=== PATIENT | male | born 1975 | race Caucasian/White ===

== ENCOUNTER 2016-10-14 05:37 | Emergency (ER) | payer BC ==
[~2016-10-14] VITALS: Ht 185.4 cm; Wt 117.9 kg
[~2016-10-14 05:37] MED LIST: ALLEGRA D 12 HO1 TER PO; AMOXICILLIN500 MG PO; AMOXIL500 MG PO; ANTIVERT/2525 MG PO; ANTIVERT12.5 MG PO; FLONASE0.05 MG/AC NS; ULTRAM50 MG PO
[2016-10-14 06:34] LABS: BASO # 0.1 10*3/uL (0.0-0.1); BASO % 0.9 % (0.0-1.0); EOS # 0.1 10*3/uL (0.0-0.4); EOS % 1.7 % (1.0-4.0); HEMOGLOBIN 14.6 g/dl (14.0-18.0); LYMPH # 1.9 10*3/uL (1.3-4.4); LYMPH % 28.9 % (27.0-41.0); MEAN CELL VOLUME 83.8 fl (80.0-94.0); MEAN CORPUSCULAR HGB 29.1 pg (27.0-31.0); MEAN CORPUSCULAR HGB CONC 34.8 g/dl (33.0-37.0); MEAN PLATELET VOLUME 9.7 fl (9.6-12.3); MONO # 0.6 10*3/uL (0.1-1.0); MONO % 9.9 % (3.0-9.0); NEUT # 3.8 10*3/uL (2.3-7.9); NEUT % 58.4 % (47.0-73.0); PLATELET COUNT AUTOMATED 281 10*3/uL (130-400); RED BLOOD COUNT 5.01 10*6/uL (4.50-5.90); RED CELL DISTRI WIDTH 12.5 % (0-14.5); WHITE BLOOD COUNT 6.5 10*3/uL (4.8-10.8)
[2016-10-14 06:44] LABS: BUN 12 mg/dl (7-24); CARBON DIOXIDE 25 mmol/L (21-32); CHLORIDE 105 mmol/L (98-107); EST GLOM FILT AFRICAN AMERICAN > 60 ml/min; GLUCOSE 111 mg/dL (65-99); POTASSIUM 3.9 mmol/L (3.5-5.1); SODIUM 142 mmol/L (136-145)
[2016-10-14 06:59] LABS: BILIRUBIN NEGATIVE (NEGATIVE); BLOOD TRACE-INTACT (NEGATIVE); CLARITY CLEAR (CLEAR); COLOR YELLOW (YELLOW); GLUCOSE NEGATIVE (NEGATIVE); KETONE NEGATIVE (NEGATIVE); LEUKO ESTERASE NEGATIVE (NEGATIVE); NITRITE NEGATIVE (NEGATIVE); PROTEIN NEGATIVE (NEGATIVE); SPECIFIC GRAVITY 1.015 (1.005-1.030); UROBILINOGEN 0.2 E.U./dl (0.2-1.0)
[2016-10-14 07:05] LABS: URINE REFLEX COMMENT NO (NO)
== END 2016-10-14 09:07 | disposition home or self-care (01) ==
LOC: ED 05:37
PROVIDERS: Emergency Medicine
DX: R10.31 Right lower quadrant pain (principal); R31.9 Hematuria, unspecified

== ENCOUNTER 2019-04-23 21:39 | Inpatient (IN) | payer OTHER ==
[~2019-04-23] VITALS: Ht 185.4 cm; Wt 112.7 kg
--- NOTE | ~2019-04-23 | PR ---
[place], [place] PROGRESS NOTE [id number] UNIT #: [id number] ROOM: 404 DOCTOR: ISHAN FAJARDO MD BIRTHDATE: [birth year] DOS: 04/25/2019 SUBJECTIVE: The patient back in normal sinus rhythm. He had a MINGO and a cardiac stress test performed this morning. OBJECTIVE: GENERAL APPEARANCE: The patient is alert and oriented x 3, in no visible distress. VITAL SIGNS: Blood pressure 118/70, heart rate of 58 beats per minute, breathing 20 times per minute, temperature 98 degrees Fahrenheit. HEENT AND NECK: Exam within normal limits. CARDIOVASCULAR SYSTEM: Heart rate is regular in rate and rhythm. S1 and S2 normally audible. LUNGS: Clear to auscultation. ABDOMEN: Soft, nontender. No obvious organomegaly. Bowel sounds are present. EXTREMITIES: Without significant cyanosis or edema. IMPRESSION: 1. The patient with acute atrial fibrillation with rapid ventricular response, resolved, converted back to normal sinus rhythm. The patient on Cardizem CD, heart rate is controlled and the patient anticoagulated with Xarelto now. 2. Obesity, BMI of 32.7. The patient is working with Dietary. 3. History of vertigo, presently asymptomatic. 4. Type 2 diabetes mellitus, diet controlled. ISHAN FAJARDO MD CM:PNTRANS [id number] ISHAN FAJARDO MD 04/26/19 0537 interface
--- NOTE | ~2019-04-23 | DS ---
[place], [place] DISCHARGE SUMMARY NAME: ARTURO YOUNGBLOOD [facility] #: [id number] UNIT #: [id number] ROOM: 404 DOCTOR: TOMI AGUILERA MD BIRTHDATE: [birth year] DOS: 04/26/2019 DIAGNOSES: 1. Atrial fibrillation, paroxysmal. 2. Diet controlled diabetes mellitus. 3. History of vertigo. HOSPITAL COURSE: The patient is a 44-year-old who comes in with complaints of shortness of breath. He was found to be in atrial fibrillation with rapid ventricular response. In the ER, was given IV Cardizem and converted to sinus rhythm, was admitted. After admission, he remained in sinus rhythm. Cardiology consultation was obtained. Echocardiogram and stress tests were done. He was anticoagulated with Xarelto. The patient remained without any complaints on 04/26/2019, after his stress test came back as negative. Echocardiogram was normal, was discharged home to be followed up as an outpatient. DISCHARGE MEDICATIONS: Included Xarelto 20 mg daily and diltiazem 120 mg daily. TOMI AGUILERA MD CM:BRADY [id number] TOMI AGUILERA MD 05/11/19 0908 interface
--- NOTE | ~2019-04-23 | EKG ---
[place], [place] ELECTROCARDIOGRAM REPORT NAME: ARTURO YOUNGBLOOD UNIT #: [id number] ROOM: 404 DOCTOR: AJAY DRAFT REPORT BIRTHDATE: [birth year] [facility] Test Date: 2019-04-24 Test Time: 03:00:05 Pat Name: ARTURO YOUNGBLOOD Department: Room: 404 Gender: M Clinical Immunologist: Chandni Palomo : 1975 Requested By: MIO DUDLEY Order Number: [id number] Reading MD: Rd Daniels MD Measurements Intervals [place] Rate: 85 P: RI: QRS: 7 QRSD: 105 T: 11 QT: 365 QTc: 434 Interpretive Statements Atrial fibrillation Electronically Signed On 04-25-2019 15:39:[address] Daniels MD CM:EKGRPT:ELECTROCARDIOGRAM REPORT [id number] MIO BALL DRAFT REPORT MIO DUDLEY DO
--- NOTE | ~2019-04-23 | PR ---
[place], [place] PROGRESS NOTE NAME[id number] UNIT #: [id number] ROOM: 404 DOCTOR: TOMI AGUILERA MD BIRTHDATE: [birth year] DOS: 04/26/2019 SUBJECTIVE: The patient is doing well without any complaints. OBJECTIVE: GENERAL: He is awake and alert and oriented. VITAL SIGNS: Blood pressure is 108/75, pulse of 80, respirations 18, temperature 97.9. LUNGS: Clear. HEART: Regular. ABDOMEN: Soft. EXTREMITIES: Without any edema. ASSESSMENT AND PLAN: Paroxysmal atrial fibrillation, converted to sinus rhythm. The patient is stable. The patient remains in sinus rhythm. The plan is to discharge to home today. He already had a stress test and echocardiogram, which were all within normal limits and the Cardiology has cleared for discharge. Unfortunately, it is a weekend and he is unable to get his Xarelto here. I have given him two tablets of Xarelto, one for today and one for tomorrow and he will hopefully be able to come back on Sunday and have his prescription refill just in case the copay is too expensive as an outpatient. Discussed with nursing staff in detail. TOMI AGUILERA MD CM:PNTRANS 1324 TOMI AGUILERA MD 04/26/19 1323 interface
--- NOTE | ~2019-04-23 | EKG ---
[place], [place] ELECTROCARDIOGRAM REPORT NAME: ARTURO YOUNGBLOOD UNIT #: [id number] ROOM: 404 DOCTOR: JAAY DRAFT REPORT BIRTHDATE: [birth year] [facility] Test Date: 2019-04-24 Test Time: 00:30:45 Pat Name: ARTURO YOUNGBLOOD Department: Room: 404 Gender: M Concrete Conveyor Operator: Chandni Palomo : 1975 Requested By: MIO DUDLEY Order Number: [id number] Reading MD: Rd Daniels MD Measurements Intervals [place] Rate: 129 P: AL: QRS: 9 QRSD: 91 T: 27 QT: 308 QTc: 452 Interpretive Statements Atrial fibrillation Rapid ventricular rate. Baseline wander in lead(s) V1 Electronically Signed On 04-25-2019 15:38:[address] Daniels MD CM:EKGRPT:ELECTROCARDIOGRAM REPORT 0030 1538 MIO BALL DRAFT REPORT MIO DUDLEY DO
--- NOTE | ~2019-04-23 | EKG ---
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
--- NOTE | ~2019-04-23 | WRIGHTHP ---
[place], [place] PATIENT HISTORY AND PHYSICAL EXAM NAME: ARTURO YOUNGBLOOD [facility] #: [id number] UNIT #: [id number] ROOM: 404 DOCTOR: ISHAN FAJARDO MD BIRTHDATE: [birth year] DOS: 04/23/2019 HISTORY OF PRESENT ILLNESS: 1. The patient is a 44-year-old gentleman with a past medical history of diet-controlled type 2 diabetes mellitus. 2. Obesity with BMI of 32.7, POLLEN allergies. 3. History of vertigo. The patient presented to the Emergency Department with palpitation, increased shortness of breath. No fainting episodes and he was found to be in atrial fibrillation with rapid ventricular response with a heart rate of 130 beats per minute. The patient was hydrated with normal saline, started on IV Cardizem and had became available and admitted to a monitored bed for further management. After admission, the patient is chest pain free. His breathing has improved. No other GI or urinary symptoms. REVIEW OF SYSTEMS: RESPIRATORY: The patient did have increasing shortness of breath. GASTROINTESTINAL: No nausea, vomiting, diarrhea, constipation. CARDIOVASCULAR: History of palpitations. FAMILY HISTORY: Noncontributory. HOME MEDICATIONS: None. PHYSICAL EXAMINATION: GENERAL: Alert, oriented x 3. VITAL SIGNS: Blood pressure 101/56, heart rate 70 beats per minute, breathing 18 times per minute, temperature 98.8 degrees Fahrenheit. HEENT AND NECK: Extraocular movements are intact. Sclerae are anicteric. Oral mucosa is moist and clean. No obvious facial weakness. Neck is supple without any lymphadenopathy. No thyromegaly. No JVD. No carotid arterial bruits. LUNGS: Clear to auscultation. No wheezing. No rhonchi. CARDIOVASCULAR SYSTEM: The patient had irregularly irregular heart rate on auscultation. S1, S2 audible. No murmurs. ABDOMEN: Soft, nontender. No obvious organomegaly. Bowel sounds are present. No obvious herniation. EXTREMITIES: Without significant cyanosis or edema. Warm to touch. CENTRAL NERVOUS SYSTEM: Alert and oriented x 3. Cranial nerves II-XII are intact. Speech is normal. The patient is able to move all extremities. Normal muscle strength. Deep tendon reflexes are equal on both sides. Plantars were downgoing. LABORATORY DATA: Normal serum electrolytes. BMI of 32.7, heart rate ranging between 70-130 beats per minute. Normal serum electrolytes, normal CBC. IMPRESSION: 1. New onset atrial fibrillation with rapid ventricular response, being controlled with IV Cardizem. The patient is being worked up for cardioversion with MINGO. Case discussed with Dr. Daniels and the patient in great detail today. [place], [place] PATIENT HISTORY AND PHYSICAL EXAM NAME: ARTURO YOUNGBLOOD UNIT #: [id number] ROOM: 404 DOCTOR: SCOTTY BARRERA,ISHAN Kebede BIRTHDATE: [birth year] The patient to be anticoagulated with Xarelto. 2. Type 2 diabetes mellitus, diet controlled with significant weight loss. 3. Obesity with BMI of 32.8. The patient working on diet and to work with dietary. ISHAN FAJARDO MD CM:HISPHYS:PATIENT HISTORY AND PHYSICAL EXAMINATION [id number] ISHAN FAJARDO MD 04/24/19 1026 interface
[2019-04-23 21:55] VITALS: BP 131/71
[2019-04-23 21:57] LABS: BASO # 0.1 10*3/uL (0.0-0.1); EOS # 0.3 10*3/uL (0.0-0.4); HEMATOCRIT 44.4 % (42.0-52.0); HEMOGLOBIN 15.2 g/dl (14.0-18.0); LYMPH # 2.1 10*3/uL (1.3-4.4); LYMPH % 18.1 % (27.0-41.0); MEAN CELL VOLUME 89.3 fl (80.0-94.0); MEAN CORPUSCULAR HGB 30.6 pg (27.0-31.0); MEAN CORPUSCULAR HGB CONC 34.2 g/dl (33.0-37.0); MEAN PLATELET VOLUME 10.4 fl (9.6-12.3); MONO # 1.4 10*3/uL (0.1-1.0); MONO % 12.2 % (3.0-9.0); NEUT # 7.5 10*3/uL (2.3-7.9); NEUT % 65.5 % (47.0-73.0); PLATELET COUNT AUTOMATED 261 10*3/uL (130-400); RED BLOOD COUNT 4.97 10*6/uL (4.50-5.90); RED CELL DISTRI WIDTH 12.5 % (0-14.5); WHITE BLOOD COUNT 11.4 10*3/uL (4.8-10.8)
[2019-04-23 22:30] VITALS: BP 120/82
[2019-04-23 22:47] LABS: ACT PARTIAL THROMBO TIME 30.8 SECONDS (20.0-32.1); INTERNATIONAL NORM RATIO 0.9 (2.0-3.5)
[2019-04-23 22:52] LABS: ALBUMIN 3.8 gm/dl (3.1-4.5); BUN 14 mg/dl (7-24); CHLORIDE 112 mmol/L (98-107); CREATININE 0.88 mg/dL (0.70-1.30); POTASSIUM 3.6 mmol/L (3.5-5.1); SGOT/AST 18 IU/L (3-35); SGPT/ALT 27 U/L (12-78); SODIUM 141 mmol/L (136-145); TOTAL PROTEIN 7.4 gm/dL (6.4-8.2)
[2019-04-23 22:54] LABS: ALKALINE PHOSPHATASE 107 U/L (45-117); TROPONIN I 0.035 ng/ml (<0.045)
[2019-04-23 23:00] VITALS: BP 90/60
--- NOTE | 2019-04-23 23:00 | NUR ---
I SPOKE WITH HEENA LUIS AND ASKED IF THE PATIENT IS GOING TO BE STARTED ON A BLOOD THINNER WHILE IN THE ER. SHE STATES THAT WE WILL NOT START A BLOOD THINNER BUT THAT HE WILL BE STARTED ON ONE BY CARDIOLOGY.
--- NOTE | 2019-04-23 23:00 | NUR ---
BEOFRE STARTING THE PATIENT ON CARDIZEM GTT THE PATIENT BP DROPPED TO 90/60 MAN. TOBY NAIK WAS NOTIFIED. CARDIZEM ON HOLD AT THIS TIME. BOLUS NS RUNNING. PATIENT TO BE ADMITTED.
[2019-04-23 23:30] VITALS: BP 107/68
[2019-04-24] VITALS (8 sets, daily range): BP systolic 101–136; BP diastolic 56–86
--- NOTE | 2019-04-24 00:30 | NUR ---
PER HEENA LUIS. THE PATIENTS CARDIZEM GTT IS TO BE ON HOLD UNTIL CARDIOLOGY GIVES THE ORDER TO CONT IT. HEENA LYNCH WAS NOTIFIED IN REPORT WHEN PATIENT WAS ADMITTED.
--- NOTE | 2019-04-24 00:30 | NUR ---
A 44, admitted to , under the services of Dr. SCOTTY BARRERA,ISHAN Kebede with a diagnosis of NEW ONSET AFIB. Chief complaint is SHORTNESS OF BREATH. Patient arrived via stretcher from ER. Monitor applied. Initial assessment completed. Vital signs taken and recorded. DR. SCOTTY BARRERA,ISHAN Kebede notified of admission to the unit. Orders received. See assessment for past medical history, medications and allergies. Patient and/or family oriented to unit. [facility] visitation policy reviewed. Clothing/patient valuable form completed. HEENA ALEXANDER
--- NOTE | 2019-04-24 00:50 | NUR ---
DR FAJARDO CALLED WITH ADMISSION ORDERS. NEW ORDERS RECEIVED, SEE EMAR.
--- NOTE | 2019-04-24 00:54 | NUR ---
CALL PLACED TO [facility] CARDIOOLOGY CONCERNING STARTING CARDIZEM. WAITING FOR CALL BACK.
--- NOTE | 2019-04-24 00:57 | NUR ---
DR QUISPE RETURNED CALL, OK TO START CARDIZEM DRIP AT THIS TIME.
--- NOTE | 2019-04-24 01:48 | NUR ---
CARDIZEM DRIP INCREASED TO 10MG/HR. BP 120/72 HR 120. WILL MONITOR.
--- NOTE | 2019-04-24 03:00 | NUR ---
HR REMAINS 113, CARDIZEM CONTINUES AT 10MG/HR.
--- NOTE | 2019-04-24 04:38 | NUR ---
PATIENT AWAKE AND WATCHING TV AT THIS TIME. RESPIRATIONS EASY AND UNLABORED. PATIENT STATES THAT HE DOES NOT FEEL THE FLUTTERING FEELING IN HIS CHEST AT THIS TIME. HR 80'S-100'S AT THIS TIME. PATIENT HAS NO COMPLAINTS AT THIS TIME. CALL LIGHT WITHIN REACH. WILL MONITOR.
--- NOTE | 2019-04-24 06:00 | NUR ---
PT HR MAINTAINING 70'S-80'S ON CM. CARDIZEM DRIP DECREASED TO 5 MG/HR. WILL CONTINUE TO MONITOR.
--- NOTE | 2019-04-24 08:30 | NUR ---
Branch Associate in to talk to patient. Patient states lives at home with his . There are 5 steps in the home. Physician: Dr. Rex Newsome Pharmacy: [facility] Home health services: none Patient's level of ADLs: INDEPENDENT Patient has working utilities: yes DME: none Follow-up physician's appointment after d/c: he prefers to make his own follow up appt after discharge Does patient want to access PORTAL?: no Discharge plan discussed with patient and his who is present at his bedside. He lives at home with his . He is independent in his ADLs and ambulation. Discussed home health care services and he denies any home needs at this time. When medically stable he will be discharged to home. His will provide transportation on discharge. LUCAS KRAFT
[2019-04-25] VITALS: BP 112/69
--- NOTE | 2019-04-25 00:30 | NUR ---
PATIENT HR 55-59 ON SUMO WRESTLER. CARDIZEM PO HELD AT THIS TIME. WILL MONITOR HEART RATE.
--- NOTE | 2019-04-25 04:00 | NUR ---
24 HR chart check completed.
[2019-04-25 07:03] LABS: BASO # 0.1 10*3/uL (0.0-0.1); BASO % 0.8 % (0.0-1.0); EOS # 0.3 10*3/uL (0.0-0.4); EOS % 3.8 % (1.0-4.0); HEMATOCRIT 42.3 % (42.0-52.0); HEMOGLOBIN 13.8 g/dl (14.0-18.0); LYMPH # 1.7 10*3/uL (1.3-4.4); LYMPH % 24.3 % (27.0-41.0); MEAN CELL VOLUME 91.4 fl (80.0-94.0); MEAN CORPUSCULAR HGB 29.8 pg (27.0-31.0); MEAN CORPUSCULAR HGB CONC 32.6 g/dl (33.0-37.0); MEAN PLATELET VOLUME 10.5 fl (9.6-12.3); MONO # 0.8 10*3/uL (0.1-1.0); MONO % 10.6 % (3.0-9.0); NEUT # 4.3 10*3/uL (2.3-7.9); NEUT % 60.2 % (47.0-73.0); PLATELET COUNT AUTOMATED 246 10*3/uL (130-400); RED BLOOD COUNT 4.63 10*6/uL (4.50-5.90); RED CELL DISTRI WIDTH 12.9 % (0-14.5); WHITE BLOOD COUNT 7.1 10*3/uL (4.8-10.8)
[2019-04-25 07:29] LABS: BUN 9 mg/dl (7-24); CHLORIDE 106 mmol/L (98-107); CREATININE 0.82 mg/dL (0.70-1.30); POTASSIUM 3.8 mmol/L (3.5-5.1); SODIUM 139 mmol/L (136-145)
[2019-04-25 07:42] LABS: FREE T4 0.87 ng/dl (0.76-1.46); THYROID STIM HORMONE (HS) 1.93 uIU/ml (0.358-4.75)
[2019-04-25 08:00] VITALS: BP 118/70
--- NOTE | 2019-04-25 08:30 | NUR ---
Steel Heater in to see patient. No new needs or request at this time. He denies any home needs. When medically stable he will be discharged to home. He is to have a stress test and echo today.
--- NOTE | 2019-04-25 08:55 | NUR ---
PT OFF FLOOR FOR STRESS TEST AT THIS TIME.
--- NOTE | 2019-04-25 09:50 | NUR ---
INFORMED CONSENT OBTAINED FOR LEXISCAN NUCLEAR STRESS TEST WITH DR. QUISPE. RESTING EKG NSR WITH A RESTING HR OF 66 WITH BP OF 120/72. LUNGS CLEAR. PT COMPLETED A 1:00 LEXISCAN PROTOCOL RECEIVING LEXISCAN 0.4 MG IV OVER 10 SECONDS. HAD NO CHEST PAIN OR ANY EKG CHANGES. DID C/O FEELINGS OF "HOT, DIZZINESS AND SHORT OF BREATH" THAT WAS RELIEVED IN RECOVERY. HAD A PEAK HR OF 104 WITH BP OF 102/64. LAST RECOVERY HR OF 86 WITH BP OF 124/72. AWAITING SCANNING IN STABLE CONDITION.
--- NOTE | 2019-04-25 11:40 | NUR ---
PT RETURNED FROM STRESS TEST AT THIS TIME.
[2019-04-25 12:00] VITALS: BP 117/67
[2019-04-25 16:00] VITALS: BP 103/61
--- NOTE | 2019-04-25 16:11 | NUR ---
RECEIVED CALL FROM DR QUISPE, STATES PT'S ECHO AND STRESS TEST WERE NORMAL, PT MAY FOLLOW UP IN A MONTH. UPDATED DR FAJARDO. STATES PT MAY BE A POSSIBLE D/C TOMORROW.
[2019-04-25 20:00] VITALS: BP 108/63
[2019-04-26] VITALS: BP 108/75
[2019-04-26] MEDS ORDERED: CARDIZEM CD120 M2 PO (07:59)
[2019-04-26] MEDS ORDERED: XARE20MG PO (07:59)
[2019-04-26 08:17] LABS: BASO # 0.1 10*3/uL (0.0-0.1); BASO % 0.7 % (0.0-1.0); EOS # 0.2 10*3/uL (0.0-0.4); EOS % 3.4 % (1.0-4.0); HEMATOCRIT 44.6 % (42.0-52.0); HEMOGLOBIN 14.7 g/dl (14.0-18.0); MEAN CELL VOLUME 89.6 fl (80.0-94.0); MEAN CORPUSCULAR HGB 29.5 pg (27.0-31.0); MEAN PLATELET VOLUME 10.5 fl (9.6-12.3); MONO # 0.7 10*3/uL (0.1-1.0); NEUT # 3.7 10*3/uL (2.3-7.9); NEUT % 55.6 % (47.0-73.0); PLATELET COUNT AUTOMATED 282 10*3/uL (130-400); RED BLOOD COUNT 4.98 10*6/uL (4.50-5.90); RED CELL DISTRI WIDTH 12.3 % (0-14.5); WHITE BLOOD COUNT 6.7 10*3/uL (4.8-10.8)
[2019-04-26 08:35] LABS: BUN 10 mg/dl (7-24); CHLORIDE 107 mmol/L (98-107); CREATININE 0.89 mg/dL (0.70-1.30); POTASSIUM 3.5 mmol/L (3.5-5.1); SODIUM 140 mmol/L (136-145)
--- NOTE | 2019-04-26 09:30 | NUR ---
Discharge instructions reviewed with patient/family. Patient receptive and verbalizes understanding. Follow-up care arranged. Written instructions given to patient/family. IV site and junior staff accountant removed. CODIE AMOR
== END 2019-04-26 09:30 | disposition home or self-care (01) | DRG 310 ==
LOC: ED 21:39 → 4E 23:30 → EDHOLD 23:30 → 4E 23:41
PROVIDERS: Emergency Medicine; ADMIT Internal Medicine
PROC: 3E073KZ Introduction of Other Diagnostic Substance into Coronary Artery, Percutaneous Approach (ICD-10-PCS; principal; 2019-04-25)
PROC: 4A02XM4 Measurement of Cardiac Total Activity, External Approach (ICD-10-PCS; principal; 2019-04-25)
DX: I48.0 Paroxysmal atrial fibrillation (principal); Z82.49 Family history of ischemic heart disease and other diseases of the circulatory system; E11.9 Type 2 diabetes mellitus without complications; E66.9 Obesity, unspecified; Z68.32 Body mass index [BMI] 32.0-32.9, adult

== ENCOUNTER 2020-06-07 09:59 | Emergency (ER) | payer OTHER ==
[~2020-06-07] VITALS: Ht 187.9 cm; Wt 117.9 kg
[~2020-06-07 09:59] MED LIST changes: +CARDIZEM CD120 M2 PO; +XARE20MG PO
[2020-06-07 10:29] LABS: BASO # 0.1 10*3/uL (0.0-0.1); BASO % 1.1 % (0.0-1.0); EOS # 0.1 10*3/uL (0.0-0.4); EOS % 1.1 % (1.0-4.0); HEMATOCRIT 47.7 % (42.0-52.0); LYMPH # 2.5 10*3/uL (1.3-4.4); LYMPH % 34.3 % (27.0-41.0); MEAN CELL VOLUME 86.3 fl (80.0-94.0); MEAN CORPUSCULAR HGB 28.8 pg (27.0-31.0); MEAN CORPUSCULAR HGB CONC 33.3 g/dl (33.0-37.0); MEAN PLATELET VOLUME 9.7 fl (9.6-12.3); MONO # 0.6 10*3/uL (0.1-1.0); MONO % 8.4 % (3.0-9.0); NEUT % 54.8 % (47.0-73.0); PLATELET COUNT AUTOMATED 319 10*3/uL (130-400); RED BLOOD COUNT 5.53 10*6/uL (4.50-5.90); RED CELL DISTRI WIDTH 12.2 % (0-14.5); WHITE BLOOD COUNT 7.2 10*3/uL (4.8-10.8)
[2020-06-07 10:42] LABS: ACT PARTIAL THROMBO TIME 42.7 SECONDS (20.0-32.1); INTERNATIONAL NORM RATIO 1.2 (2.0-3.5)
[2020-06-07 10:50] LABS: ALBUMIN 3.9 gm/dl (3.1-4.5); ALKALINE PHOSPHATASE 96 U/L (45-117); BUN 14 mg/dl (7-24); CHLORIDE 109 mmol/L (98-107); CREATININE 1.23 mg/dL (0.70-1.30); LIPASE 129 U/L (73-393); POTASSIUM 4.4 mmol/L (3.5-5.1); SGOT/AST 17 IU/L (3-35); SGPT/ALT 30 U/L (12-78); SODIUM 137 mmol/L (136-145); TOTAL PROTEIN 7.6 gm/dL (6.4-8.2)
[2020-06-07 10:53] LABS: TROPONIN I < 0.015 ng/ml (<0.045)
[2020-06-07] MEDS ORDERED: BUPROPION HCL150 M1 PO (19:46)
[2020-06-07] MEDS ORDERED: TRAZODONE50 MG PO (19:46)
== END 2020-06-07 12:17 | disposition left against medical advice (07) ==
LOC: ED 09:59
PROVIDERS: Emergency Medicine
DX: I48.0 Paroxysmal atrial fibrillation (principal)

== ENCOUNTER 2020-06-07 19:29 | Inpatient (IN) | payer OTHER ==
[2020-06-07] VITALS (7 sets, daily range): BP systolic 108–137; BP diastolic 71–88
[~2020-06-07] VITALS: Ht 187.9 cm; Wt 121.2 kg
[2020-06-07] MEDS ORDERED: TRAZODONE50 MG PO (19:46)
[2020-06-07] MEDS ORDERED: BUPROPION HCL150 M1 PO (19:46)
[2020-06-07 20:10] LABS: BASO # 0.1 10*3/uL (0.0-0.1); BASO % 0.9 % (0.0-1.0); EOS # 0.1 10*3/uL (0.0-0.4); EOS % 1.3 % (1.0-4.0); HEMATOCRIT 45.5 % (42.0-52.0); LYMPH # 2.2 10*3/uL (1.3-4.4); LYMPH % 27.7 % (27.0-41.0); MEAN CORPUSCULAR HGB 28.7 pg (27.0-31.0); MEAN PLATELET VOLUME 9.7 fl (9.6-12.3); MONO # 0.8 10*3/uL (0.1-1.0); MONO % 10.6 % (3.0-9.0); NEUT # 4.7 10*3/uL (2.3-7.9); NEUT % 59.4 % (47.0-73.0); PLATELET COUNT AUTOMATED 301 10*3/uL (130-400); RED BLOOD COUNT 5.23 10*6/uL (4.50-5.90); RED CELL DISTRI WIDTH 12.2 % (0-14.5); WHITE BLOOD COUNT 7.9 10*3/uL (4.8-10.8)
--- NOTE | 2020-06-07 20:15 | NUR ---
EKGS DONE BEFORE AND AFTER IV ADENOCARD 6 MG (WITH NO RESULTS) AND IV CARDIZEM 10 MG IV WITH RESULTS. PT WENT FROM RATE OF 170'S-180'S TO NSR 80'S AFTER IV CARDIZEM.HE TOLERATED WELL. VITALS STABLE NOW. PULSE OX 97 RA. RESP EASY. DENIES CHEST PAIN.----JOSE MARTIN HUBBARD RN
[2020-06-07 20:24] LABS: INTERNATIONAL NORM RATIO 1.1 (2.0-3.5)
[2020-06-07 20:29] LABS: ALBUMIN 3.7 gm/dl (3.1-4.5); ALKALINE PHOSPHATASE 93 U/L (45-117); BUN 16 mg/dl (7-24); CHLORIDE 111 mmol/L (98-107); CREATININE 1.18 mg/dL (0.70-1.30); SGOT/AST 18 IU/L (3-35); SGPT/ALT 29 U/L (12-78); SODIUM 139 mmol/L (136-145)
[2020-06-07 20:36] LABS: TROPONIN I 0.082 ng/ml (<0.045)
--- NOTE | 2020-06-07 20:40 | NUR ---
PTS L.ACID AND TROPONIN ARE ELEVATED (SEE CRITICAL RESULTS), DR HIRSCH AWARE.IV FLUIDS ORDERED.---JOSE MARTIN HUBBARD RN
--- NOTE | 2020-06-07 22:58 | NUR ---
SPOKE WITH NURSE DUNG WHO IS GETTING REPORT AND SHE IS AWARE OF CONSULT OF DR GROVES AND SHE SAID SHE WILL VERIFY THIS WITH DR FAJARDO WHEN SHE CALLS HIM FOR ORDERS AND THEN SHE WILL NOTIFY THIS MD.---JOSE MARTIN HUBBARD RN
--- NOTE | 2020-06-07 23:06 | NUR ---
A 45, admitted to 5E, under the services of Dr. SCOTTY BARRERA,ISHAN Kebede with a diagnosis of AFIB. Chief complaint is AFIB. Patient arrived via stretcher from ER. Monitor applied. Initial assessment completed. Vital signs taken and recorded. DR. SCOTTY BARRREA,ISHAN Kebede notified of admission to the unit. Orders received. See assessment for past medical history, medications and allergies. Patient and/or family oriented to unit. visitation policy reviewed. Clothing/patient valuable form completed. DUNG CESAR
--- NOTE | 2020-06-07 23:19 | NUR ---
MED REC COMPLETED WITH PATIENT ALERT AND ORIENTED
--- NOTE | 2020-06-07 23:30 | NUR ---
ORDERS FROM DR FAJARDO AT THIS TIME
--- NOTE | 2020-06-07 23:42 | NUR ---
DR MAGAÑA'S ANSWERING SERVICE AWARE OF CONSULT
--- NOTE | 2020-06-08 06:40 | NUR ---
PATIENT RESTED WELL THROUGHOUT THE NIGHT WITH NO COMPLAINTS OR NEEDS. NORMAL SINUS ON THE MONITOR WITH RATE OF 69. BED IN LOWEST POSITION, CALL LIGHT IN REACH
--- NOTE | 2020-06-08 09:00 | NUR ---
Bartacker in to talk to patient in his room. Patient states that he lives at Home with His . There are 10 steps Physician: Dr. Newsome Pharmacy: [facility] Home health services:N/A Patient's level of ADLs: Independent, still works and Drives Patient has working utilities: Yes DME: N/A Follow-up physician's appointment after d/c: Pt. will Follow with [facility] Cardiology Jul 13 2:00 at [facility] with DR. Fenton, Pt. will need to Schedule a Sleep Study after discharge. Provided with Information for Dr. Mercer Sleep Lab. Pt. prefers to Make his Own Appointment with Dr. Newsome. Does patient want to access PORTAL?: Discharge plan . HELENE SILVERIO
--- NOTE | 2020-06-08 09:15 | NUR ---
Follow up appointment scheduled with [facility] Cardiology with Dr. Fenton Jul 13 2:00. Provided Patient with Office information and Contact Phone Number. Pt. is to have a follow up Sleep study after discharge. Provided with Information for Local Sleep Lab with Dr. Mercer.
[2020-06-08 12:00] VITALS: BP 100/51
[2020-06-08 16:00] VITALS: BP 120/68
[2020-06-08 16:33] VITALS: BP 126/84
--- NOTE | 2020-06-08 16:34 | NUR ---
PT GIVEN FIRST DOSE OF ATENOLOL. BP CHECKED MANUALLY 126/84 AT THIS TIME. MEDICATION EDUCATION PROVIDED. PT VERBALIZES HIS UNDERSTANDING OF THIS. EDUCATION WILL NEED REINFORCED
[2020-06-08 18:05] VITALS: BP 124/80
[2020-06-08 20:00] VITALS: BP 122/69
[2020-06-09] VITALS: BP 132/81
[2020-06-09 08:00] VITALS: BP 116/78
[2020-06-09] MEDS ORDERED: TENORMIN25 MG PO (09:45)
--- NOTE | 2020-06-09 10:41 | NUR ---
PT DISCHARGED HOME AT THIS TIME. HE REFUSED A WHEELCHAIR AND AMBULATED OFF THE FLOOR TO BE PICKED UP BY HIS IN THE MAIN LOBBY. HEPLOCK AND COMBINE OPERATOR DC'D BEFORE LEAVING.
== END 2020-06-09 10:41 | disposition home or self-care (01) | DRG 310 ==
LOC: ED 19:29 → 5E 21:34 → EDHOLD 21:34 → 5E 22:23
PROVIDERS: Emergency Medicine; ADMIT Internal Medicine; ATTEND Internal Medicine
DX: I48.0 Paroxysmal atrial fibrillation (principal); E11.9 Type 2 diabetes mellitus without complications; F51.01 Primary insomnia; E66.01 Morbid (severe) obesity due to excess calories; Z79.01 Long term (current) use of anticoagulants; Z68.34 Body mass index [BMI] 34.0-34.9, adult; Z79.899 Other long term (current) drug therapy

== ENCOUNTER 2020-11-10 04:41 | Emergency (ER) | payer OTHER ==
[~2020-11-10] VITALS: Ht 185.4 cm; Wt 124.7 kg
[~2020-11-10 04:41] MED LIST changes: +BUPROPION HCL150 M1 PO; +TENORMIN25 MG PO; +TRAZODONE50 MG PO
[2020-11-10 05:27] LABS: ALBUMIN 4.1 gm/dl (3.1-4.5); ALKALINE PHOSPHATASE 101 U/L (45-117); BUN 16 mg/dl (7-24); CHLORIDE 106 mmol/L (98-107); CREATININE 1.49 mg/dL (0.70-1.30); SGOT/AST 18 IU/L (3-35); SGPT/ALT 43 U/L (12-78); SODIUM 139 mmol/L (136-145); TOTAL PROTEIN 8.3 gm/dL (6.4-8.2)
[2020-11-10 05:28] LABS: TROPONIN I < 0.015 ng/ml (<0.045)
[2020-11-10 05:46] LABS: BASO # 0.1 10*3/uL (0.0-0.1); BASO % 1.1 % (0.0-1.0); EOS # 0.1 10*3/uL (0.0-0.4); EOS % 1.1 % (1.0-4.0); HEMATOCRIT 48.1 % (42.0-52.0); LYMPH # 3.7 10*3/uL (1.3-4.4); LYMPH % 39.6 % (27.0-41.0); MEAN CELL VOLUME 87.9 fl (80.0-94.0); MEAN CORPUSCULAR HGB 29.3 pg (27.0-31.0); MEAN CORPUSCULAR HGB CONC 33.3 g/dl (33.0-37.0); MEAN PLATELET VOLUME 9.8 fl (9.6-12.3); MONO # 1.2 10*3/uL (0.1-1.0); MONO % 12.3 % (3.0-9.0); NEUT # 4.2 10*3/uL (2.3-7.9); NEUT % 45.3 % (47.0-73.0); PLATELET COUNT AUTOMATED 369 10*3/uL (130-400); RED BLOOD COUNT 5.47 10*6/uL (4.50-5.90); RED CELL DISTRI WIDTH 12.3 % (0-14.5); WHITE BLOOD COUNT 9.4 10*3/uL (4.8-10.8)
== END 2020-11-10 06:23 | disposition home or self-care (01) ==
LOC: ED 04:41
PROVIDERS: Internal Medicine
DX: I47.1 Supraventricular tachycardia (principal); Z88.8 Allergy status to other drugs, medicaments and biological substances; Z79.899 Other long term (current) drug therapy

== ENCOUNTER → 2021-04-27 | Outpatient (CLI) | payer OTHER ==
[~2021-04-27] MED LIST changes: +ATIVAN0.5 MG PO; +DIAZEPAM5 MG PO
== END | disposition home or self-care (01) ==
LOC: CARD 00:24
PROVIDERS: ATTEND Internal Medicine
DX: R07.9 Chest pain, unspecified (principal)

== ENCOUNTER 2022-08-19 21:12 | Emergency (ER) | payer OTHER ==
[~2022-08-19] VITALS: Ht 185.4 cm; Wt 127.0 kg
[2022-08-19] MEDS ORDERED: ANUSOL-HC25 MG R (22:22)
[2022-08-19] MEDS ORDERED: PREDNISONE50 MG PO (22:22)
== END 2022-08-19 22:40 | disposition home or self-care (01) ==
LOC: ED 21:12
DX: K64.9 Unspecified hemorrhoids (principal); M54.42 Lumbago with sciatica, left side; E11.9 Type 2 diabetes mellitus without complications; F41.9 Anxiety disorder, unspecified

== ENCOUNTER → 2023-02-19 | Outpatient (CLI) | payer BC ==
[~2023-02-19] MED LIST changes: +ANUSOL-HC25 MG R; +PREDNISONE50 MG PO
== END | disposition home or self-care (01) ==
LOC: RESCLI 08:34
PROVIDERS: ATTEND Student in an Organized Health Care Education/Training Program
DX: I48.91 Unspecified atrial fibrillation (principal); E78.5 Hyperlipidemia, unspecified; F41.9 Anxiety disorder, unspecified; G47.00 Insomnia, unspecified; Z79.01 Long term (current) use of anticoagulants; Z98.890 Other specified postprocedural states; Z79.899 Other long term (current) drug therapy

== ENCOUNTER → 2024-03-17 | Outpatient (CLI) | payer OTHER | END | disposition home or self-care (01) | LOC: RESCLI 07:36 | PROVIDERS: ATTEND Internal Medicine | DX: E11.9 Type 2 diabetes mellitus without complications (principal); E66.9 Obesity, unspecified; F41.1 Generalized anxiety disorder; I48.91 Unspecified atrial fibrillation; E55.9 Vitamin D deficiency, unspecified; Z12.11 Encounter for screening for malignant neoplasm of colon; Z68.43 Body mass index [BMI] 50.0-59.9, adult; Z79.01 Long term (current) use of anticoagulants; Z79.899 Other long term (current) drug therapy ==

== ENCOUNTER 2024-08-15 22:36 | Emergency (ER) | payer BC ==
[~2024-08-15] VITALS: Ht 180.3 cm; Wt 107.6 kg
[2024-08-15] MEDS ORDERED: ADENOSINE 6 MG/2 ML VIAL IV ONE ×3 (22:55→23:08)
[2024-08-15] MEDS ORDERED: Amiodarone Hydrochloride 150 MG,IV 1 EA in DEXTROSE 5% 100 ML IV ONE (23:00)
[2024-08-15 23:08] LABS: BASO # 0.1 10*3/uL (0.0-0.1); EOS # 0.1 10*3/uL (0.0-0.4); EOS % 1.8 % (1.0-4.0); HEMATOCRIT 45.9 % (42.0-52.0); MEAN CELL VOLUME 87.9 fl (80.0-94.0); MEAN CORPUSCULAR HGB 29.9 pg (27.0-31.0); MEAN PLATELET VOLUME 10.1 fl (9.6-12.3); MONO # 0.8 10*3/uL (0.1-1.0); MONO % 9.7 % (3.0-9.0); NEUT # 3.5 10*3/uL (2.3-7.9); NEUT % 44.9 % (47.0-73.0); PLATELET COUNT AUTOMATED 305 10*3/uL (130-400); RED BLOOD COUNT 5.22 10*6/uL (4.50-5.90); RED CELL DISTRI WIDTH 12.4 % (0-14.5); WHITE BLOOD COUNT 7.8 10*3/uL (4.8-10.8)
[2024-08-15] MEDS ORDERED: Metoprolol Tartrate 5 MG/5 ML VIAL IV ONE (23:08)
[2024-08-15 23:21] LABS: ACT PARTIAL THROMBO TIME 33.9 SECONDS (20.0-32.1)
[2024-08-15 23:28] LABS: BUN 15 mg/dl (9-23); CHLORIDE 103 mmol/L (98-107); POTASSIUM 3.7 mmol/L (3.4-5.1)
== END 2024-08-16 01:55 | disposition home or self-care (01) ==
LOC: ED 22:36
PROVIDERS: Internal Medicine
DX: I47.10 Supraventricular tachycardia, unspecified (principal); I48.91 Unspecified atrial fibrillation; R42 Dizziness and giddiness; Z79.899 Other long term (current) drug therapy

== ENCOUNTER → 2024-08-18 | Outpatient (CLI) | payer BC ==
[2024-08-18 10:04] LABS: BASO # 0.1 10*3/uL (0.0-0.1); BASO % 0.8 % (0.0-1.0); EOS % 0.5 % (1.0-4.0); HEMATOCRIT 48.8 % (42.0-52.0); MEAN CELL VOLUME 88.9 fl (80.0-94.0); MEAN CORPUSCULAR HGB 29.5 pg (27.0-31.0); MEAN CORPUSCULAR HGB CONC 33.2 g/dl (33.0-37.0); MEAN PLATELET VOLUME 10.1 fl (9.6-12.3); MONO # 0.5 10*3/uL (0.1-1.0); MONO % 6.4 % (3.0-9.0); NEUT % 72.3 % (47.0-73.0); PLATELET COUNT AUTOMATED 309 10*3/uL (130-400); RED BLOOD COUNT 5.49 10*6/uL (4.50-5.90); RED CELL DISTRI WIDTH 12.3 % (0-14.5); WHITE BLOOD COUNT 8.3 10*3/uL (4.8-10.8)
[2024-08-18 10:05] LABS: BILIRUBIN Negative (Negative); BLOOD Trace-Lysed (Negative); CLARITY Clear (Clear); COLOR Yellow (Yellow); GLUCOSE Negative (Negative); KETONE Negative (Negative); LEUKO ESTERASE Negative (Negative); NITRITE Negative (Negative); UROBILINOGEN 0.2 E.U./dl (0.0-1.0)
[2024-08-18 10:20] LABS: MUCOUS TRACE; RBC 0-2 rbc/hpf (0-2); WBC 0-2 wbc/hpf (0-5)
== END | disposition home or self-care (01) ==
LOC: RESCLI 08:23
PROVIDERS: ATTEND Internal Medicine
DX: E11.9 Type 2 diabetes mellitus without complications (principal); R35.89 Other polyuria; I47.10 Supraventricular tachycardia, unspecified; R30.0 Dysuria

== ENCOUNTER → 2024-08-25 | Outpatient (CLI) | payer BC | END | disposition home or self-care (01) | LOC: US 11:46 | PROVIDERS: ATTEND Internal Medicine | DX: N50.3 Cyst of epididymis (principal); N50.819 Testicular pain, unspecified ==

== ENCOUNTER → 2025-05-04 | Outpatient (CLI) | payer BC ==
[2025-05-04 09:17] LABS: BASO # 0.1 10*3/uL (0.0-0.1); BASO % 1.2 % (0.0-1.0); EOS # 0.2 10*3/uL (0.0-0.4); EOS % 2.9 % (1.0-4.0); MEAN CELL VOLUME 91.0 fl (80.0-94.0); MEAN CORPUSCULAR HGB 30.1 pg (27.0-31.0); MEAN PLATELET VOLUME 9.8 fl (9.6-12.3); MONO # 0.5 10*3/uL (0.1-1.0); MONO % 8.4 % (3.0-9.0); NEUT # 3.6 10*3/uL (2.3-7.9); NEUT % 61.2 % (47.0-73.0); NUCLEATED RED BLOOD CELL 0.0 % (0.0-0.0); NUCLEATED RED BLOOD CELL 0.0 10*3/uL (0.0-0.0); PLATELET COUNT AUTOMATED 270 10*3/uL (130-400); RED CELL DISTRI WIDTH 12.2 % (0-14.5)
[2025-05-04 09:30] LABS: BILIRUBIN Negative (Negative); BLOOD Trace-Lysed (Negative); CLARITY Clear (Clear); COLOR Yellow (Yellow); KETONE Negative (Negative); LEUKO ESTERASE Negative (Negative); NITRITE Negative (Negative); PH 5.0 (4.5-8.0); SPECIFIC GRAVITY 1.015 (1.001-1.030); UROBILINOGEN 0.2 E.U./dl (0.0-1.0)
[2025-05-04 09:40] LABS: BUN 14 mg/dl (9-23); SGPT/ALT 23 U/L (5-49)
[2025-05-04 10:08] LABS: BACTERIA TRACE; WBC 0-2 wbc/hpf (0-5)
== END | disposition home or self-care (01) ==
LOC: LAB 01:01 → RESCLI 01:01
PROVIDERS: ATTEND Family Medicine
DX: I10 Essential (primary) hypertension (principal); R35.1 Nocturia; R30.0 Dysuria; R53.83 Other fatigue